=== PATIENT | female | born 1960 | race Caucasian/White ===

== ENCOUNTER 2019-08-29 11:59 | Emergency (ER) | payer BC ==
[~2019-08-29] VITALS: Ht 147.3 cm; Wt 42.8 kg
[2019-08-29] MEDS ORDERED: GABA-1181 PO (12:08)
[2019-08-29 15:34] VITALS: BP 140/88
== END 2019-08-29 15:35 | disposition home or self-care (01) ==
LOC: EMS 12:01
DX: M25.551 Pain in right hip (principal); M25.552 Pain in left hip; M25.561 Pain in right knee; M25.562 Pain in left knee; G89.29 Other chronic pain; F41.9 Anxiety disorder, unspecified; F31.9 Bipolar disorder, unspecified; F20.9 Schizophrenia, unspecified; F17.210 Nicotine dependence, cigarettes, uncomplicated; F19.10 Other psychoactive substance abuse, uncomplicated; Z88.1 Allergy status to other antibiotic agents; Z59.0 Homelessness